=== PATIENT | male | born 1990 | race Caucasian/White ===

== ENCOUNTER 2017-01-19 22:10 | Emergency (ER) | payer OTHER ==
[~2017-01-19] VITALS: Ht 175.3 cm; Wt 81.0 kg
[2017-01-20 00:40] VITALS: BP 118/77
== END 2017-01-20 00:30 | disposition home or self-care (01) ==
LOC: ER 22:35
DX: S90.31XA Contusion of right foot, initial encounter (principal); V89.1XXA Person injured in unspecified nonmotor-vehicle accident, nontraffic, initial encounter; Y93.89 Activity, other specified; Y92.89 Other specified places as the place of occurrence of the external cause; Y99.8 Other external cause status
CPT/HCPCS: 73630; 99284